=== PATIENT | female | born 1970 | race Hispanic/Latino ===

== ENCOUNTER 2023-10-20 05:40 | Day surgery (SDC) | payer BC ==
[~2023-10-20] VITALS: Ht 162.6 cm; Wt 141.1 kg
[2023-10-20] VITALS (10 sets, daily range): BP systolic 103–168; BP diastolic 52–94; PULSE 61–67; RESP 15–18
[~2023-10-20 05:40] MED LIST: AMLO-257 PO; LEVO175C2 PO; METF-444 PO; TIRZ5PEN SQ; VALS160T29 PO; [UNRECOGNIZED DRUG - CODE] MC
[2023-10-20] MEDS ORDERED: 0.9%NACL 1000ML 1,000 ML IV ONE ×2 (06:20→06:55)
[2023-10-20] MEDS: 0.9%NACL 1000ML 1,000 ML IV ONE (07:18)
[2023-10-20] MEDS ORDERED: PROPOFOL 10 MG/ML 20ML VIAL IV ONE (07:31)
[2023-10-20] MEDS ORDERED: LIDOCAINE HCL 1% 20 ML VIAL ONE (07:31)
== END 2023-10-20 09:15 | disposition home or self-care (01) ==
LOC: DAH 05:40 → ENDO 05:40
PROVIDERS: ATTEND Internal Medicine Gastroenterology
DX: Z12.11 Encounter for screening for malignant neoplasm of colon (principal); K62.1 Rectal polyp; I10 Essential (primary) hypertension; E03.9 Hypothyroidism, unspecified; E11.9 Type 2 diabetes mellitus without complications; R94.5 Abnormal results of liver function studies; K76.0 Fatty (change of) liver, not elsewhere classified; K59.04 Chronic idiopathic constipation; E66.01 Morbid (severe) obesity due to excess calories; Z68.43 Body mass index [BMI] 50.0-59.9, adult; Z82.49 Family history of ischemic heart disease and other diseases of the circulatory system; Z83.3 Family history of diabetes mellitus; Z79.84 Long term (current) use of oral hypoglycemic drugs; Z79.899 Other long term (current) drug therapy; Z79.890 Hormone replacement therapy
CPT/HCPCS: 81025; 82948 ×2; 45380; J7030 ×3; J2704; A4620; A4215 ×3; A4223; A4657; A7002; A4222; A4221; A4663; A4606; J3490